=== PATIENT | male | born 1990 | race Caucasian/White ===

== ENCOUNTER 2023-08-06 04:00 | Emergency (ER) | payer MEDICAID ==
[~2023-08-06] VITALS: Ht 165.1 cm; Wt 85.7 kg
[2023-08-06 04:04] VITALS: BP 127/71; PULSE 75; RESP 18; TEMP 97.5; O2SAT 99
[2023-08-06] MEDS ORDERED: KETOROLAC 60 MG/2 ML VIAL IM ONE ×2 (04:18→04:20)
[2023-08-06] MEDS ORDERED: IBUP-2213 PO (04:22)
[2023-08-06] MEDS ORDERED: MORPHINE SULFATE 4 MG/ML SYR IVP ONE (04:55)
[2023-08-06 05:16] LABS: BASOPHILS % (AUTO) 0.5 % (0.0-2.0); EOSINOPHILS # (AUTO) 0.1 K/uL (0-0.4); EOSINOPHILS % (AUTO) 1.3 % (0.0-4.0); HEMATOCRIT 40.9 % (36-52); HEMOGLOBIN 14.5 g/dL (12.0-18.0); LYMPHOCYTES # (AUTO) 2.9 K/uL (2.0-11.5); LYMPHOCYTES % (AUTO) 31.4 % (20.5-51.1); MEAN CORPUSCULAR HEMOGLOBIN 30 pg (27-31); MEAN CORPUSCULAR HGB CONC 35 g/dL (33-37); MEAN CORPUSCULAR VOLUME 83.8 fL (80-94); MONOCYTES # (AUTO) 0.6 K/uL (0.8-1.0); MONOCYTES % (AUTO) 6.6 % (1.7-9.3); NEUTROPHILS # (AUTO) 5.5 K/uL (1.8-7.7); NEUTROPHILS % (AUTO) 60.2 % (42.2-75.2); PLATELET COUNT (AUTO) 317 K/uL (140-450); RED BLOOD CELL COUNT(AUTO) 4.87 MIL/uL (4.20-6.10); WHITE BLOOD COUNT (AUTO) 9.2 K/uL (4.8-10.8)
[2023-08-06 05:31] LABS: ALBUMIN 3.4 g/dL (3.4-5.0); ANION GAP 11.8 (8-16); CARBON DIOXIDE 26.8 mmol/L (21-32); POTASSIUM 3.6 mmol/L (3.5-5.1); TOTAL BILIRUBIN 0.4 mg/dL (0.0-1.0); TOTAL PROTEIN, SERUM 7.3 g/dL (6.4-8.2)
[2023-08-06] MEDS ORDERED: ACET-5629 PO (07:01)
[2023-08-06 07:21] VITALS: BP 137/66; PULSE 66; RESP 16; TEMP 97.7; O2SAT 100
== END 2023-08-06 07:21 | disposition home or self-care (01) ==
LOC: MED 04:00
DX: R10.32 Left lower quadrant pain (principal); Z79.899 Other long term (current) drug therapy
CPT/HCPCS: 36415; 74176; 80053; 81002; 83690; 85025; 96374; 96375; 99285; J1885; J2270